=== PATIENT | female | born 1970 | race Caucasian/White ===

== ENCOUNTER 2024-01-16 11:37 | Emergency (ER) | payer BC, SELFPAY ==
[2024-01-16 11:37] VITALS: BP 105/75; PULSE 73; RESP 16; TEMP 36.4; O2SAT 100; BMI 23.8
--- NOTE | 2024-01-16 11:55 | RAD_ITS ---
STUDY: X-RAY - ABDOMEN/PELVIS REASON FOR EXAM: Female, 53 years old. ?? Constipation TECHNIQUE: Single AP view of the abdomen / pelvis. COMPARISON: None. FINDINGS: Normal visualized lung bases. Moderate amount of fecal material is seen in the colon. The visualized liver, spleen and kidneys are grossly normal in size and morphology. Bilateral fallopian tube ligation clips are seen. Minimal dextroscoliosis. RAD/Abdomen Single View IMPRESSION: Moderate amount of fecal material is seen in the colon. Electronically Signed: Sukhdev Brandt MD at 12:15 EDT ,
--- NOTE | 2024-01-16 11:55 | EDS_ITS ---
HPI HPI - GI History of Present Illness Chief Complaint: Constipation Informant: patient Nausea/Vomiting/Emesis GI Symptom: Negative for Nausea or Vomiting Diarrhea/Melena/Hematochezia GI Symptom: Positive for Diarrhea and - (Intermittent constipation) Onset: Today and Yesterday Stool Quality: Positive for Loose Severity: Mild Associated Symptoms Associated Symptoms: Negative for Dysuria, Frequency, Hematuria or Urgency Narrative Narrative: 53-year-old female recently diagnosed with hypothyroidism and started on levothyroxine by I believe the nurse practitioner from the [facility]. Patient states that the last day or so she has had some bowel changes and she was concerned it was secondary to the new medication. She said at times show of loose stools and other times it seems like it is hard and small amounts like she is constipated. Denies any gross blood or black stools. Denies any prior abdominal surgery other than a . Denies any abdominal pain. No fever. No dysuria. She is on no blood thinners. She called her doctor's office today who told her to come in to the emergency department. Prior similar symptoms: No Recent Illness/Hospitalization: No PFSH PFSH Medical History Hypothyroid Home Medications ?Medication ?Instructions ?Recorded ?Last Taken ?Type levothyroxine 25 mcg tablet 25 mcg PO DAILY 01/16/24 Unknown History Social History Smoking Status: Never smoker ROS ROS ED ROS Narrative Loose stools and constipation. No abdominal pain. No fever. No vomiting. No dysuria. Review of Systems ROS Unobtainable: Denies due to encephalopathy Constitutional Constitutional ED: Denies chills or fever(s) ENT ENT ED: Denies ear pain Cardiovascular Cardiovascular: Denies chest pain or palpitations Respiratory/Chest Respiratory/Chest: Denies cough Gastrointestinal Gastrointestinal: Reports constipation and diarrhea; Denies abdominal pain, melena, nausea or vomiting Genitourinary Genitourinary ED: Denies dysuria or hematuria Musculoskeletal Musculoskeletal: Denies arthralgias, back pain, myalgias or neck pain Integumentary Denies abscess or Abrasions Neurologic Neurologic: Denies headache(s) Psychiatric Psychiatric: Denies anxiety Endocrine Endocrinology: Denies polydipsia Hematologic/Lymphatic Hematologic/Lymphatic: Denies easy bleeding Allergic/Immunologic Allergic/Immunologic ED: Denies mouth swelling, tongue swelling or urticaria EXAM Physical Exam Narrative Exam Narrative: 53-year-old female no acute distress sitting upright in bed. Vital signs stable afebrile. HEENT exam unremarkable. Moist mucous membranes. Neck nontender no lymphadenopathy. Lungs clear to auscultation bilaterally. Heart regular rhythm no murmur. Chest wall and ribs nontender. Abdomen soft nontender. Normal bowel sounds no peritoneal signs. No hernia or mass. No obstruction. Moving all 4 extremities. Nontender no edema. Neurologically she is awake and alert. No focal motor deficits. Normal benign exam. Const Vital Signs: 01/16/24 11:37 Temperature 97.6 F L Temperature Source Temporal Pulse Rate 73 Respiratory Rate 16 Blood Pressure 105/75 Blood Pressure Mean 85 Pulse Ox 100 Oxygen Delivery Method Room Air Positive well nourished and well developed; Negative for obese, cachectic, contractures or unkempt General Appearance ED: well developed and NAD; Negative for unkempt, cachectic, contractures or pallor Nutritional Appearance: Negative for cachectic or obese HEENT Reports moist mucous membranes; Denies dry mucous membranes normocephalic and atraumatic; Negative for trauma or tenderness Mouth ED: No dry mucous membranes Mouth: No dry mucous membranes Eyes PERRL and EOMs intact bilaterally General Eye ED: Negative for pale conjunctiva or scleral icterus Neck no lymphadenopathy, supple and no JVD General: Negative for tenderness Carotids: Negative for other Lymph Lymphatic: Negative for other Resp normal respiratory effort and clear to auscultation bilaterally Effort and Inspection: Negative for respiratory distress Auscultation: Negative for rales, rhonchi or wheezes Cardio regular rate, regular rhythm, S1 normal heart sound, S2 normal heart sound and no murmurs Rate: Negative for bradycardia or tachycardic Rhythm: Negative for abnormal rhythm GI non-tender, non-distended and no masses Inspection: Negative for abdominal distention or other Auscultation: normoactive bowel sounds Palpation: soft; Negative for tender, guarding or rigid Back/Spine no CVA tenderness General Back: Negative for CVA tenderness Cervical Spine: Negative for cervical spine tenderness Thoracic Spine / Upper Back: Negative for thoracic spinal tenderness Lumbar Spine / Lower Back: Negative for lumbar spinal tenderness Coccyx: Negative for other Extremity full ROM General Extremety ED: Negative for edema or tenderness General Extremity: Negative for edema Neuro CN's II-XII intact bilaterally and moves all extremities Sensorium / Orientation: alert, oriented to person, oriented to place and oriented to time; Negative for orientation impaired, confused, lethargic or stuporous Motor Exam: strength 5/5 throughout Psych mental status grossly normal and thought process normal Appearance: Negative for unkempt Attitude: No agitated Mood & Affect: Negative for depressed, anxious or tearful Skin no wounds General Skin Exam: Negative for jaundice or pallor Lesions: no lesions Rashes: no rashes Trauma: Negative for abrasion Nails: Negative for discolored MDM MDM MDM Narrative Medical decision making narrative: Well-appearing 53-year-old female. KUB being obtained for possible constipation. She had recent significant number labs sent to [facility] she prefer not additional labs being done today. She is trying to pull them up on [employer] so I can. Reviewed those test. Repeat exam patient doing well at 12:30 PM. She was able to pull up her lab work from this week from the [facility] blood counts, electrolytes liver test kidney function all were unremarkable. She had an elevated TSH. That is why they started her on thyroid medication. I told her her bowel changes may be secondary to that and the new medication. She can follow-up with her primary care physician in 1 to 2 weeks. Also to be further evaluated for a small amount of rectal bleeding. History & Record Review Discussion w/independent historian: Patient Additional record(s) reviewed:: No prior records Radiography Diagnostic Testing: Clinical Impression(s) from Imaging Studies KUB X-Ray 01/16/24 11:55 IMPRESSION: Moderate amount of fecal material is seen in the colon. Electronically Signed: Sukhdev Brandt MD at 12:15 EDT , KUB, 2 views, interpreted by myself and radiologist shows slightly increased stool. No other acute abnormality. Discharge Plan Triage Chief Complaint: Constipation ED Provider: Ronaldo Guidry Dx/Rx/DC Orders Clinical Impression: Hypothyroidism, RB (rectal bleeding) Instructions: Rectal Bleeding Tx, ED Hypothyroidism Prescriptions: No Action levothyroxine 25 mcg tablet 25 mcg PO DAILY Primary Care Provider: Dominique Scott Referrals: Dominique Scott MD [Primary Care Provider] - 1-2 Weeks Activity Restrictions/Additional Instructions: Your x-ray looks good. All the recent tests reviewed that you had done [facility] look good except for your thyroid. You were just started on the medication it will take some time for your system to get used to it. And also for that to regulate your thyroid. This may affect your bowel movements with either diarrhea or con stipation. Follow-up with your doctor in 1 to 2 weeks to see how you are doing. Also follow-up due to the rectal bleeding. They may want to talk to you about a colonoscopy if that continues or was a problem. Print Language: [place] Disposition Disposition: Home, Self Care
[2024-01-16 12:38] VITALS: BP 110/80; PULSE 71; RESP 16; TEMP 36.6; O2SAT 99
== END 2024-01-16 12:39 | disposition home or self-care (01) ==
PROVIDERS: Emergency Provider Emergency Medicine; PCP Internal Medicine; Visit Provider Emergency Medicine
DX: K62.5 Hemorrhage of anus and rectum (principal); R19.7 Diarrhea, unspecified; E03.9 Hypothyroidism, unspecified; Z79.890 Hormone replacement therapy
CPT/HCPCS: 74018; 99282